=== PATIENT | female | born 1950 | race Caucasian/White ===

== ENCOUNTER 2017-01-06 04:27 | Emergency (ER) | payer OTHER, MEDICARE ==
[~2017-01-06] VITALS: Ht 167.6 cm; Wt 64.5 kg
[2017-01-06 04:32] VITALS: BP 155/88; PULSE 100; RESP 16; O2SAT 99
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
[2017-01-06 05:42] VITALS: BP 155/88; PULSE 100; RESP 16; O2SAT 99
--- NOTE | 2017-01-06 09:19 | DRSVH ---
PROCEDURE: X-RAY LEFT FOOT COMPLETE, MINIMUM THREE VIEWS ([id number]) INDICATIONS: glass fb TECHNIQUE: 3 views of the foot were acquired. COMPARISON: [facility], CR, XR FOOT 3VW LT, 07/04/2016, 14:16. FINDINGS: Bones: No fractures or dislocations. No suspicious bony lesions. Soft tissues: No tibiotalar joint effusion. Achilles tendon appears normal. No radiodense foreign b odies. IMPRESSION: No radiodense foreign bodies identified. Dictated by: Martha Sales MD, PhD on 01/06/2017 at 9:16 Approved by: Martha Sales MD, PhD on 01/06/2017 at 9:17
== END 2017-01-06 04:52 | disposition home or self-care (01) ==
LOC: SED 04:32
DX: S91.312A Laceration without foreign body, left foot, initial encounter (principal); W26.8XXA Contact with other sharp object(s), not elsewhere classified, initial encounter; Y93.89 Activity, other specified; Y92.009 Unspecified place in unspecified non-institutional (private) residence as the place of occurrence of the external cause; Y99.8 Other external cause status; Z88.8 Allergy status to other drugs, medicaments and biological substances